=== PATIENT | female | born 1975 | race Caucasian/White ===

== ENCOUNTER 2016-12-26 07:47 | Observation (INO) | payer BC ==
[~2016-12-26] VITALS: Ht 162.6 cm; Wt 101.4 kg
[~2016-12-26 07:47] MED LIST: ACET-1600 PO; ALBU8.5H5 INH; ALPR0.254 PO; CYCL-259 PO; HYDR4TAB16 PO; OMEP40CA6 PO; SERT50TA5 PO; TAMS0.4C2 PO
[2016-12-26] MEDS ORDERED: SODIUM CHLORIDE 0.9% 1,000 ML IV ONE (08:08)
[2016-12-26] MEDS ORDERED: HYDROmorphone 1 MG/ML, 1ML ONE ×2 (08:24→09:06)
[2016-12-26] MEDS ORDERED: ONDANSETRON 2MG/ML, 2ML ONE ×3 (08:24→17:01)
[2016-12-26] MEDS: HYDROmorphone 1 MG/ML, 1ML IVPush PRN ×2 (08:26→09:08)
[2016-12-26] MEDS ORDERED: SODIUM CHLORIDE FLUSH 10ML SYR IVF ONE (08:30)
[2016-12-26] MEDS ORDERED: SODIUM CHLORIDE 0.9% 1,000ML IVBOLUS ONE (08:30)
[2016-12-26] MEDS ORDERED: ONDANSETRON 2MG/ML, 2ML IVPush ONE ×2 (08:30→11:00)
[2016-12-26 08:46] LABS: HEMOGLOBIN 14.2 g/dL (11.7-16.4)
[2016-12-26 08:59] LABS: ASPARTATE AMINO TRANSFERASE 15 U/L (15-37); BLOOD UREA NITROGEN 12 mg/dL (7-18)
[2016-12-26] MEDS ORDERED: OMNIPAQUE 350 MG/ML, 150 ML BOTTLE ONE (09:22)
[2016-12-26] MEDS ORDERED: CEFAZOLIN PMX 1GM/50ML 50 ML ONE (09:57)
[2016-12-26] MEDS ORDERED: CEFOTETAN PMX 1GM/50ML 50 ML IV ONE (10:00)
[2016-12-26] MEDS ORDERED: LACTATED RINGERS 1,000 ML IV SCH (12:44)
[2016-12-26] MEDS ORDERED: BUPIVACAINE/PF-EPI 0.5% 1:200K ONE (13:05)
[2016-12-26] MEDS ORDERED: FENTANYL PF 250 MCG/5ML ONE (13:17)
[2016-12-26] MEDS ORDERED: MIDAZOLAM 1 MG/ML, 2ML ONE (13:17)
[2016-12-26] MEDS ORDERED: METOCLOPRAMIDE 5 MG/ML, 2ML IV PRN (13:30)
[2016-12-26] MEDS ORDERED: ACETAMINOPHEN 325 MG TABLET PO PRN ×2 (13:30→16:30)
[2016-12-26] MEDS ORDERED: LABETALOL 5MG/ML, 20ML IV PRN (13:30)
[2016-12-26] MEDS ORDERED: ONDANSETRON 2MG/ML, 2ML IVPush PRN (13:30)
[2016-12-26] MEDS ORDERED: hydrALAzine 20 MG/ML, 1ML IV PRN ×2 (13:30→16:30)
[2016-12-26] MEDS ORDERED: PROMETHAZINE 25 MG/ML, 1ML IV PRN (13:30)
[2016-12-26] MEDS ORDERED: FENTANYL PF 100 MCG/2ML ONE (14:28)
[2016-12-26] MEDS ORDERED: HYDROmorphone 2 MG/ML, 1ML ONE (14:28)
[2016-12-26] MEDS: FENTANYL PF 100 MCG/2ML IV PRN ×2 (14:30→14:42)
[2016-12-26] MEDS: HYDROmorphone 1 MG/ML, 1ML IV PRN ×2 (14:38→15:12)
[2016-12-26] MEDS ORDERED: ALBUTEROL SULFATE 2.5 MG/3 ML NPPB PRN ×2 (16:30→19:00)
[2016-12-26] MEDS ORDERED: ONDANSETRON 2MG/ML, 2ML IV PRN (16:30)
[2016-12-26] MEDS ORDERED: ACETAMINOPHEN 650 MG SUPP PR PRN (16:30)
[2016-12-26] MEDS ORDERED: ACETAMINOPHEN 500 MG TABLET PO PRN (16:30)
[2016-12-26] MEDS ORDERED: DIPHENHYDRAMINE 25 MG CAPSULE PO PRN (16:30)
[2016-12-26] MEDS ORDERED: HYDROmorphone 1 MG/ML, 1ML IV PRN ×2 (16:30)
[2016-12-26] MEDS ORDERED: DIPHENHYDRAMINE 50 MG/ML, 1ML IV PRN (16:30)
[2016-12-26] MEDS ORDERED: ENALAPRILAT 1.25 MG/ML, 2ML IV PRN (16:30)
[2016-12-26] MEDS ORDERED: SUCCINYLCHOLINE 20 MG/ML, 10ML ONE (17:01)
[2016-12-26] MEDS ORDERED: DEXAMETHASONE 4 MG/ML, 1ML ONE (17:01)
[2016-12-26] MEDS ORDERED: NEOSTIGMINE 1 MG/ML, 10ML ONE (17:01)
[2016-12-26] MEDS ORDERED: ROCURONIUM 10 MG/ML ONE (17:01)
[2016-12-26] MEDS ORDERED: GLYCOPYRROLATE 0.2MG/1ML ONE (17:01)
[2016-12-26] MEDS ORDERED: PROPOFOL 10 MG/ML, 20ML ONE (17:01)
[2016-12-26 19:29] VITALS: BP 113/76
[2016-12-26] MEDS: HYDROmorphone 2MG TABLET PO PRN (23:05)
[2016-12-26] MEDS ORDERED: HYDR2TAB13 PO (23:30)
[2016-12-26] MEDS ORDERED: PROM25TA10 PO (23:35)
[2016-12-26 23:46] VITALS: BP 115/65
[2016-12-27] MEDS: HYDROmorphone 2MG TABLET PO PRN ×3 (03:26→12:50)
[2016-12-27 03:27] VITALS: BP 110/64
[2016-12-27 07:43] VITALS: BP 116/68
[2016-12-27 14:59] VITALS: BP 115/69
== END 2016-12-27 16:00 | disposition home or self-care (01) ==
LOC: ED 09:53 → EDIP 10:12 → 4NOR 12:00
PROVIDERS: ADMIT Surgery; ATTEND Surgery
DX: K35.80 Unspecified acute appendicitis (principal); R11.2 Nausea with vomiting, unspecified; J45.909 Unspecified asthma, uncomplicated; Z87.442 Personal history of urinary calculi; K66.8 Other specified disorders of peritoneum
CPT/HCPCS: 36415; 44970; 74177; 80053; 81003; 83690; 84703; 85025; 88304; 94640; 96361; 96365; 96375; 96376; 99285; G0378; J0330; J1100; J1170; J2250; J2405; J2704; J2710; J3010; J7030; J7120; Q9967; S0074; J3490; J7613

== ENCOUNTER 2017-02-26 08:59 | Emergency (ER) | payer BC ==
[~2017-02-26] VITALS: Ht 160 cm; Wt 100.2 kg
[~2017-02-26 08:59] MED LIST changes: +HYDR2TAB13 PO; +PROM25TA10 PO
[2017-02-26] MEDS ORDERED: SODIUM CHLORIDE 0.9% 1,000ML IVBOLUS ONE (09:30)
[2017-02-26] MEDS ORDERED: SODIUM CHLORIDE FLUSH 10ML SYR IVF ONE (09:30)
[2017-02-26] MEDS ORDERED: HYDROmorphone 1 MG/ML, 1ML ONE ×2 (09:34→10:31)
[2017-02-26] MEDS: HYDROmorphone 1 MG/ML, 1ML IVPush PRN ×2 (09:38→10:32)
[2017-02-26] MEDS ORDERED: CYCL5TAB PO (09:50)
[2017-02-26 09:51] LABS: ASPARTATE AMINO TRANSFERASE 69 U/L (15-37); BLOOD UREA NITROGEN 8 mg/dL (7-18)
[2017-02-26] MEDS ORDERED: DUONEB INH (09:52)
[2017-02-26 09:56] LABS: IS PT STATUS REG ER OR PRE ER? YES
[2017-02-26 10:05] LABS: DIFF TOTAL CELLS COUNTED 100 CELL DIFF
[2017-02-26 10:08] LABS: VERIFY COUNTS? YES
[2017-02-26 12:49] LABS: IS PT STATUS REG ER OR PRE ER? YES
[2017-02-26 13:25] VITALS: BP 113/66
== END 2017-02-26 13:48 | disposition home or self-care (01) ==
LOC: ED 09:56
DX: R07.9 Chest pain, unspecified (principal); R07.1 Chest pain on breathing; J45.909 Unspecified asthma, uncomplicated
CPT/HCPCS: 36415; 71010; 80053; 84484; 85025; 85379; 85610; 85730; 93005; 93971; 96361; 96374; 96376; 99285; J1170; J7030

== ENCOUNTER 2019-01-31 13:01 | Inpatient (IN) | payer BC, OTHER ==
[~2019-01-31] VITALS: Ht 160 cm; Wt 97.5 kg
[~2019-01-31 13:01] MED LIST changes: +CYCL5TAB PO; +DUONEB INH; -HYDR2TAB13 PO; +HYDR2TAB29 PO; -HYDR4TAB16 PO; +HYDR4TAB48 PO; +SERT50TA28 PO; -SERT50TA5 PO
--- NOTE | 2019-01-31 13:24 | NUR ---
Pt to 33 from lobby
--- NOTE | 2019-01-31 13:43 | NUR ---
PT AMBULATED TO BR WITHOUT DIFFICULTY. INSTRUCTED ON CLEAN CATCH URINE SAMPLE.
[2019-01-31] MEDS ORDERED: HYDROmorphone 1 MG/ML, 1ML VIAL ONE (13:51)
[2019-01-31] MEDS ORDERED: ONDANSETRON 2MG/ML, 2ML ONE (13:51)
[2019-01-31] MEDS: HYDROmorphone 2 MG/ML, 1ML IVPush PRN ×2 (13:55→14:40)
[2019-01-31] MEDS ORDERED: ONDANSETRON 2MG/ML, 2ML IVPush ONE (14:00)
[2019-01-31] MEDS ORDERED: SODIUM CHLORIDE FLUSH 10ML SYR IVF ONE (14:00)
--- NOTE | 2019-01-31 14:00 | NUR ---
PT MEDICATED PER ORDERS. BLOOD DRAWN AND SENT TO LAB. ERP WAS IN TO SEE PT, PT UNDERSTANDS POC.
[2019-01-31 14:08] LABS: BASOPHILS # (AUTO) 0.06 x10^3/uL (0-0.1); BASOPHILS % (AUTO) 1 % (0-1); EOSINOPHILS # (AUTO) 0.11 x10^3/uL (0-0.4); EOSINOPHILS % (AUTO) 2 % (1-7); LYMPHOCYTES # (AUTO) 2.45 x10^3/uL (1-3.4); LYMPHOCYTES % (AUTO) 32 % (22-44); MD NO; MEAN CORPUSCULAR HEMOGLOBIN 30.4 pg (27.0-34.8); MEAN CORPUSCULAR HGB CONC 33.7 g/dL (32.4-35.8); MEAN CORPUSCULAR VOLUME 90.2 fL (80-100); MEAN PLATELET VOLUME 9.4 fL (7.4-10.4); MONOCYTES # (AUTO) 0.55 x10^3/uL (0.2-0.8); MONOCYTES % (AUTO) 7 % (2-9); NEUTROPHILS # (AUTO) 4.42 x10^3/uL (1.8-6.8); NEUTROPHILS % (AUTO) 58 % (42-75); PLATELET COUNT 308 x10^3/uL (130-400); RED BLOOD COUNT 4.66 x10^6/uL (3.82-5.3); RED CELL DISTRIBUTION WIDTH 13.3 % (9.6-15.2)
[2019-01-31 14:12] LABS: MICROSCOPIC AUTO
[2019-01-31 14:13] LABS: CULTURE INDICATED? NO
[2019-01-31 14:20] LABS: ALANINE AMINOTRANSFERASE 18 U/L (12-78); ANION GAP 6 mmol/L (5-15); CALCIUM 8.9 mg/dL (8.5-10.1); CHLORIDE 113 mmol/L (98-107); CREATININE 0.69 mg/dL (0.55-1.02)
[2019-01-31 14:22] LABS: ALKALINE PHOSPHATASE 77 U/L (45-117); BILIRUBIN,TOTAL 1.1 mg/dL (0.2-1.0); TOTAL PROTEIN 7.3 g/dL (6.4-8.2)
--- NOTE | 2019-01-31 14:44 | NUR ---
US & EKG DONE AT BS. PT MEDICATED WITH ANOTHER 0.5MG DILAUDID FOR CONTINUED ABD PAIN.
[2019-01-31] MEDS ORDERED: ALPR0.25 PO (15:04)
--- NOTE | 2019-01-31 15:11 | NUR ---
PT VERBALIZES RELIEF AFTER 2ND DOSE OF DILAUDID.
--- NOTE | 2019-01-31 16:07 | NUR ---
PT DENIES NEEDS AT THIS TIME. UNDERSTANDS PLAN FOR ADMISSION.
[2019-01-31 17:04] VITALS: BP 119/74
[2019-01-31] MEDS ORDERED: ONDANSETRON ODT 4 MG PO PRN (18:00)
[2019-01-31] MEDS ORDERED: OMNIPAQUE 350 MG/ML, 100ML BOTTLE ONE (18:00)
[2019-01-31] MEDS ORDERED: HYDROmorphone 1 MG/ML, 1ML INJ IV PRN (18:00)
[2019-01-31] MEDS: KETOROLAC 30 MG/1 ML IV PRN (18:05)
[2019-01-31] MEDS: SODIUM CHLORIDE 0.9% 1,000 ML IV SCH (18:06)
[2019-01-31 20:00] VITALS: BP 132/83
[2019-01-31] MEDS: ONDANSETRON 2MG/ML, 2ML IVPush PRN (20:44)
[2019-01-31] MEDS: HYDROmorphone 2 MG/ML, 1ML IV PRN (20:44)
[2019-02-01 01:13] VITALS: BP 110/67
[2019-02-01] MEDS: SODIUM CHLORIDE 0.9% 1,000 ML IV SCH ×3 (03:27→22:06)
[2019-02-01] MEDS: KETOROLAC 30 MG/1 ML IV PRN ×3 (03:32→16:03)
[2019-02-01 06:01] LABS: CHLORIDE 113 mmol/L (98-107)
[2019-02-01 06:12] LABS: ALANINE AMINOTRANSFERASE 17 U/L (12-78); ALBUMIN 3.2 g/dL (3.4-5.0); ALKALINE PHOSPHATASE 66 U/L (45-117); ANION GAP 6 mmol/L (5-15); BILIRUBIN,TOTAL 1.6 mg/dL (0.2-1.0); CALCIUM 8.3 mg/dL (8.5-10.1); CREATININE 0.74 mg/dL (0.55-1.02)
[2019-02-01 06:17] LABS: BASOPHILS # (AUTO) 0.06 x10^3/uL (0-0.1); BASOPHILS % (AUTO) 1 % (0-1); EOSINOPHILS # (AUTO) 0.14 x10^3/uL (0-0.4); EOSINOPHILS % (AUTO) 2 % (1-7); LYMPHOCYTES # (AUTO) 2.39 x10^3/uL (1-3.4); LYMPHOCYTES % (AUTO) 41 % (22-44); MD NO; MEAN CORPUSCULAR HEMOGLOBIN 30.7 pg (27.0-34.8); MEAN CORPUSCULAR HGB CONC 34.1 g/dL (32.4-35.8); MEAN CORPUSCULAR VOLUME 89.9 fL (80-100); MEAN PLATELET VOLUME 9.4 fL (7.4-10.4); MONOCYTES # (AUTO) 0.61 x10^3/uL (0.2-0.8); MONOCYTES % (AUTO) 10 % (2-9); NEUTROPHILS # (AUTO) 2.71 x10^3/uL (1.8-6.8); NEUTROPHILS % (AUTO) 46 % (42-75); PLATELET COUNT 252 x10^3/uL (130-400); RED BLOOD COUNT 4.18 x10^6/uL (3.82-5.3); RED CELL DISTRIBUTION WIDTH 13.3 % (9.6-15.2)
[2019-02-01 07:46] VITALS: BP 116/80
[2019-02-01] MEDS ORDERED: SINCALIDE (KINEVAC) 5 MCG ONE (09:04)
[2019-02-01] MEDS: ONDANSETRON 2MG/ML, 2ML IVPush PRN ×3 (09:50→22:06)
[2019-02-01] MEDS: HYDROmorphone 2 MG/ML, 1ML IV PRN ×3 (11:34→20:15)
[2019-02-01 12:34] VITALS: BP 127/84
[2019-02-01] MEDS: PANTOPRAZOLE 40 MG IV IVPush SCH (16:03)
[2019-02-01 19:25] VITALS: BP 124/85
[2019-02-02 01:37] VITALS: BP 119/76
[2019-02-02] MEDS: PANTOPRAZOLE 40 MG IV IVPush SCH ×2 (04:12→16:50)
[2019-02-02] MEDS: SODIUM CHLORIDE 0.9% 1,000 ML IV SCH (05:45)
[2019-02-02 07:35] VITALS: BP 133/83
[2019-02-02] MEDS: HYDROmorphone 2 MG/ML, 1ML IV PRN ×3 (08:40→19:29)
[2019-02-02] MEDS: ONDANSETRON 2MG/ML, 2ML IVPush PRN ×2 (08:40→19:29)
[2019-02-02] MEDS ORDERED: ALBUTEROL SULFATE 2.5 MG/3 ML NPPB PRN ×2 (11:30→14:00)
[2019-02-02 13:02] VITALS: BP 123/81
[2019-02-02] MEDS ORDERED: PROPOFOL 10 MG/ML, 20ML ONE (13:32)
[2019-02-02] MEDS ORDERED: MEPERIDINE/PF 25MG/0.5ML IVPush PRN (14:00)
[2019-02-02] MEDS ORDERED: ONDANSETRON 2MG/ML, 2ML IV PRN (14:00)
[2019-02-02] MEDS ORDERED: MIDAZOLAM 1 MG/ML, 2ML IV PRN (14:00)
[2019-02-02] MEDS ORDERED: PROMETHAZINE 25 MG/ML, 1ML IV PRN (14:00)
[2019-02-02] MEDS ORDERED: LABETALOL 5MG/ML, 20ML IV PRN (14:00)
[2019-02-02] MEDS ORDERED: ONDANSETRON ODT 8 MG PO PRN (14:00)
[2019-02-02] MEDS ORDERED: EPHEDRINE 50 MG/ML, 1ML IVPush PRN (14:00)
[2019-02-02] MEDS ORDERED: DIAZEPAM 5 MG/ML, 2ML IVPush PRN (14:00)
[2019-02-02] MEDS ORDERED: FENTANYL PF 100 MCG/2ML IV PRN (14:00)
[2019-02-02] MEDS ORDERED: PROMETHAZINE 12.5 MG SUPP PR PRN (14:00)
[2019-02-02] MEDS ORDERED: HALOPERIDOL 5 MG/ML IV PRN (14:00)
[2019-02-02] MEDS ORDERED: hydrALAzine 20 MG/ML, 1ML IV PRN (14:00)
[2019-02-02] MEDS ORDERED: ACETAMINOPHEN 325 MG TABLET PO PRN (14:00)
[2019-02-02] MEDS ORDERED: HYDROmorphone 2 MG/ML, 1ML ONE (14:09)
[2019-02-02] MEDS: HYDROmorphone 2 MG/ML, 1ML IVPush PRN ×2 (14:11→14:18)
[2019-02-02 18:41] VITALS: BP 146/90
[2019-02-03 02:23] VITALS: BP 103/64
[2019-02-03] MEDS: PANTOPRAZOLE 40 MG IV IVPush SCH (04:51)
[2019-02-03 07:58] VITALS: BP 136/89
[2019-02-03] MEDS: ONDANSETRON 2MG/ML, 2ML IVPush PRN ×2 (08:42→12:55)
[2019-02-03] MEDS: HYDROmorphone 2 MG/ML, 1ML IV PRN ×2 (09:03→13:12)
[2019-02-03] MEDS: HYOSCYAMINE 0.125 MG TABLET PO PRN ×2 (12:51→12:55)
[2019-02-03] MEDS ORDERED: ONDA4TAB13 PO (12:56)
[2019-02-03] MEDS ORDERED: HYOS0.1282 PO (12:56)
[2019-02-03] MEDS ORDERED: PANT40TA3 PO ×2 (12:56)
[2019-02-03 13:40] VITALS: BP 126/82
[2019-02-03] MEDS ORDERED: TRAM50TA2 PO (14:05)
[2019-02-04] MEDS ORDERED: OMEP-110 PO (11:28)
== END 2019-02-03 14:14 | disposition home or self-care (01) | DRG 384 ==
LOC: ED 15:00 → EDIP 16:22 → 3NE 16:39 → DCLOUNGE 02-03 14:05
PROVIDERS: ADMIT Hospitalist; ATTEND Hospitalist
PROC: 0DB68ZX Excision of Stomach, Via Natural or Artificial Opening Endoscopic, Diagnostic (ICD-10-PCS; 2019-02-02)
PROC: 0DB98ZX Excision of Duodenum, Via Natural or Artificial Opening Endoscopic, Diagnostic (ICD-10-PCS; principal; 2019-02-02 09:00)
DX: K25.9 Gastric ulcer, unspecified as acute or chronic, without hemorrhage or perforation (principal); Z79.899 Other long term (current) drug therapy; J44.9 Chronic obstructive pulmonary disease, unspecified; M79.7 Fibromyalgia; F41.9 Anxiety disorder, unspecified; G89.29 Other chronic pain; Z88.6 Allergy status to analgesic agent; Z88.8 Allergy status to other drugs, medicaments and biological substances; Z82.3 Family history of stroke; Z82.49 Family history of ischemic heart disease and other diseases of the circulatory system; Z87.442 Personal history of urinary calculi
CPT/HCPCS: 36415; 71045; 74174; 76700; 78227; 80053; 81001; 83690; 84703; 85025; 88305; 93005; 96374; 96375; 96376; G0378; J1170; J1885; J2405; J2704; Q0162; Q9967; A9537; C9113; C9898; J2805; J7030

== ENCOUNTER 2019-04-26 06:03 | Day surgery (SDC) | payer OTHER ==
[~2019-04-26] VITALS: Ht 160 cm; Wt 90.8 kg
[2019-04-26 06:26] VITALS: BP 122/83
== END 2019-04-26 10:50 | disposition home or self-care (01) ==
LOC: OR 06:03
PROVIDERS: ATTEND Surgery
DX: K81.1 Chronic cholecystitis (principal); K82.8 Other specified diseases of gallbladder; J45.909 Unspecified asthma, uncomplicated; M19.90 Unspecified osteoarthritis, unspecified site; G89.4 Chronic pain syndrome; I73.9 Peripheral vascular disease, unspecified; Z79.899 Other long term (current) drug therapy; Z88.5 Allergy status to narcotic agent; Z88.8 Allergy status to other drugs, medicaments and biological substances; Z90.49 Acquired absence of other specified parts of digestive tract; Z98.890 Other specified postprocedural states; Z82.3 Family history of stroke; Z82.49 Family history of ischemic heart disease and other diseases of the circulatory system; Z80.3 Family history of malignant neoplasm of breast
CPT/HCPCS: 47562; 81025; 88304; J0171; J1100; J1170; J2250; J2405; J2704; J2710; J3010; J3490; J7120; J0690; J1885

== ENCOUNTER 2020-11-04 12:05 | Emergency (ER) | payer BC, OTHER ==
[~2020-11-04] VITALS: Ht 160 cm; Wt 102.1 kg
[~2020-11-04 12:05] MED LIST changes: +ALPR0.25 PO; -CYCL-259 PO; +CYCL10TA2 PO; +DEXL60CA2 PO; +HYOS0.1282 PO; +OMEP-110 PO; +OMEP40CA42 PO; -OMEP40CA6 PO; +ONDA4TAB13 PO; +ONDA4TAB13 SL; +PANT40TA3 PO; +TRAM50TA2 PO
--- NOTE | 2020-11-04 13:37 | NUR ---
SYRUP MIXER ASSISTANT: URINE COLLECTED AND SENT TO LAB.
--- NOTE | 2020-11-04 13:45 | NUR ---
RADIOLOGY SCHEDULER: PT TO ROOM FROM LOBBY
--- NOTE | 2020-11-04 13:52 | NUR ---
PT BIB FRIEND VIA POV. PER PT "VLADISLAV HAD A UTI FOR 2 WEEKS. 4 DIFFERENT ABX. ITS NOT GETTING BETTER. PAINFUL. BURNING. FREQUENCY.". PT STATES SHE ALSO IS HAVING BILAT LOWER BACK PAIN. URINE CULTURE SHOWED E.COLI PER PT. PT RESTING IN [facility], LAB AT BEDSIDE, URINE SAMPLE COLLECTED AND SENT TO LAB IN [facility], MONITORING IN PLACE, JOSE ELIAS AT THIS TIME, PT STATES PAIN IS 8/10, PT'S FRIEND AT BEDSIDE, MARINO.
[2020-11-04 13:58] LABS: MICROSCOPIC AUTO
[2020-11-04 14:12] LABS: BASOPHILS % (AUTO) 1 % (0-1); EOSINOPHILS % (AUTO) 0 % (1-7); LYMPHOCYTES % (AUTO) 39 % (22-44); MEAN CORPUSCULAR HEMOGLOBIN 30.7 pg (27.0-34.8); MEAN CORPUSCULAR HGB CONC 33.5 g/dL (32.4-35.8); MEAN PLATELET VOLUME 9.2 fL (7.4-10.4); MONOCYTES % (AUTO) 14 % (2-9); NEUTROPHILS % (AUTO) 47 % (42-75); PLATELET COUNT 288 x10^3/uL (130-400); RED BLOOD COUNT 5.08 x10^6/uL (3.82-5.3); RED CELL DISTRIBUTION WIDTH 12.8 % (9.6-15.2)
[2020-11-04 14:15] LABS: MD NO
[2020-11-04 14:28] LABS: ALANINE AMINOTRANSFERASE 33 U/L (12-78); ALBUMIN 4.1 g/dL (3.4-5.0); ANION GAP 6 mmol/L (5-15); CALCIUM 9.2 mg/dL (8.5-10.1); CHLORIDE 106 mmol/L (98-107); CREATININE 0.88 mg/dL (0.55-1.02)
[2020-11-04] MEDS ORDERED: HYDROmorphone 2 MG/ML, 1ML IVPush PRN (14:30)
[2020-11-04] MEDS ORDERED: ONDANSETRON 2MG/ML, 2ML IVPush ONE (14:30)
[2020-11-04 14:32] LABS: ALKALINE PHOSPHATASE 90 U/L (45-117); BILIRUBIN,TOTAL 0.5 mg/dL (0.2-1.0)
[2020-11-04] MEDS ORDERED: HYDROmorphone 2 MG/ML, 1ML ONE (14:51)
[2020-11-04] MEDS ORDERED: ONDANSETRON 2MG/ML, 2ML ONE (14:57)
[2020-11-04 15:57] VITALS: BP 129/85
== END 2020-11-04 15:59 | disposition home or self-care (01) ==
LOC: ED 15:50
DX: R10.9 Unspecified abdominal pain (principal); R30.0 Dysuria; R39.15 Urgency of urination; Z88.5 Allergy status to narcotic agent; Z88.8 Allergy status to other drugs, medicaments and biological substances; Z88.1 Allergy status to other antibiotic agents; Z88.6 Allergy status to analgesic agent
CPT/HCPCS: 36415; 76770; 80053; 81001; 84703; 85025; 87086; 96374; 96375; 99284; J1170; J2405